=== PATIENT | female | born 1995 | race Two or more races ===

== ENCOUNTER 2020-01-05 01:22 | Emergency (ER) | payer BC, OTHER ==
[~2020-01-05] VITALS: Ht 149.9 cm; Wt 60.8 kg
[2020-01-05 01:48] VITALS: BP 149/106
[2020-01-05] MEDS ORDERED: ACETAMINOPHEN 325 MG TAB PO ONE (02:00)
== END 2020-01-05 03:11 | disposition home or self-care (01) ==
LOC: ER 01:24 → EEVIPCON 01:24 → ER 03:11
DX: U07.1 COVID-19 (principal)
CPT/HCPCS: 87070; 87804; 87880; 99283; C9803; U0003